=== PATIENT | female | born 1970 | race Caucasian/White ===

== ENCOUNTER → 2017-08-14 | Outpatient (CLI) | payer OTHER ==
--- NOTE | 2017-08-14 14:20 | RADIOLOGY REPORT (SQ) ---
EXAM DESCRIPTION: CT ABD/PELVIS WITH IV ORAL COMPLETED DATE/TIME: 08/14/2017 1:15 pm REASON FOR STUDY: PELVIC AND PERINEAL PAIN (R10.2), RLQ PAIN (R10.31) R10.2 PELVIC AND PERINEAL YENNI N R10.31 RIGHT LOWER QUADRANT PAIN COMPARISON: Abdominal ultrasound 07/15/2011 CT abdomen pelvis 07/15/2011 TECHNIQUE: CT scan of the abdomen and pelvis performed using helical scanning technique with dynamic intravenous contrast injection. Patient drank oral contrast. Images reviewed with lung, soft tissue, and bone windows. Reconstructed coronal and sagittal MPR imag es reviewed. Delayed images for evaluation of the urinary system also acquired. All images stored on PACS. All CT scanners at this facility use dose modulation, iterative reconstruction, and/or weight based d osing when appropriate to reduce radiation dose to as low as reasonably achievable (ALARA). [facility]: Dose Right [facility]: CareDose [facility]: Dose Right [facility]: Teradose 4D [facility]: Ubiq Mobile CONTRAST TYPE AND DOSE: contrast/concentration: Isovue 370.00 mg/ml; Total Contrast Delivered: 100.0 ml; Total Saline Delivered: 72.0 ml RENAL FUNCTION: Creatinine 0.7 RADIATION DOSE: Up-to-date CT equipment and radiation dose reduction techniques were employed. CTDIv ol: 23.5 - 24.4 mGy. DLP: 2445 mGy-cm.. LIMITATIONS: None. FINDINGS: LOWER CHEST: No significant findings. No nodules or infiltrates. LIVER: Normal size. No masses. No dilated ducts. A 4.6 x 4.9 cm cyst is present in the left lobe li arti subdiaphragmatic surface (was 2.6 cm in diameter in 2010). A 1.1 cm simple cyst is present in th e anterior left lobe liver (was 0.6 cm on 07/15/2011). SPLEEN: Normal size. No focal lesions. PANCREAS: No masses. No significant calcifications. No adjacent inflammation or peripancreatic fluid collections. Pancreatic duct not dilated. GALLBLADDER: Surgically absent. ADRENAL GLANDS: No significant masses or asymmetry. RIGHT KIDNEY AND URETER: No solid masses. No significant calcifications. No hydronephrosis or hyd roureter. LEFT KIDNEY AND URETER: No solid masses. No significant calcifications. No hydronephrosis or hydr oureter. AORTA AND VESSELS: No aneurysm. No dissection. Renal arteries, SMA, celiac without stenosis. RETROPERITONEUM: No retroperitoneal adenopathy, hemorrhage or masses. BOWEL AND PERITONEAL CAVITY: No masses or inflammatory changes. No free fluid or peritoneal masses. APPENDIX: Normal. PELVIS: No mass. No free fluid. Normal bladder. Post hysterectomy. Normal size ovaries on axial im age 74. ABDOMINAL WALL: No masses. No hernias. BONES: No significant or acute findings. OTHER: A 2.4 x 2.1 right-sided vulvar cyst is present on axial image 91 IMPRESSION: Benign hepatic cysts. Post hysterectomy and cholecystectomy Right-sided 2.4 x 2.1 cm vulvar cyst TECHNICAL DOCUMENTATION: JOB ID: [id number] Quality ID # [id number]: Final reports with documentation of one or more dose reduction techniques (e.g., Au tomated exposure control, adjustment of the mA and/or kV according to patient size, use of iterative reconstruction technique) 2010 [employer]- All Rights Reserved
== END ==
LOC: RAD 12:26
PROVIDERS: ATTEND Student in an Organized Health Care Education/Training Program
DX: R10.2 Pelvic and perineal pain (principal); R10.31 Right lower quadrant pain
CPT/HCPCS: 74177; 82565

== ENCOUNTER 2017-11-24 05:24 | Observation (INO) | payer OTHER ==
[2017-11-24] MEDS ORDERED: CEFAZOLIN 2 GM/D5W RTU 2 GM/50 ML RTUPB IV ONE (05:36)
[2017-11-24] MEDS ORDERED: CEFAZOLIN 2 GM/D5W RTU 2 GM/50 ML RTUPB IV PRN (05:54)
[2017-11-24 06:13] LABS: APPEARANCE,URINE CLEAR; BILIRUBIN,URINE NEGATIVE (NEGATIVE); COLOR,URINE YELLOW; GLUCOSE, URINE NEGATIVE (NEGATIVE); KETONES,URINE NEGATIVE (NEGATIVE); LEUKOCYTE ESTERASE,URINE SMALL (NEGATIVE); NITRITE,URINE NEGATIVE (NEGATIVE); PROTEIN,URINE NEGATIVE (NEGATIVE); URINE SPECIFIC GRAVITY 1.027
[2017-11-24 06:38] LABS: HEMOGLOBIN 14.7 g/dL (12.0-15.5); MEAN CORPUSCULAR HEMOGLOBIN 31.4 pg (27.0-33.4); MEAN CORPUSCULAR HGB CONC 33.4 g/dL (32.0-36.0); MEAN CORPUSCULAR VOLUME 94 fl (80-97); PLATELET COUNT 251 10^3/uL (150-450); RED BLOOD COUNT 4.68 10^6/uL (3.72-5.28); RED CELL DISTRIBUTION WIDTH 13.7 % (11.5-14.0)
[2017-11-24] MEDS ORDERED: ACETAMINOPHEN 100 ML IV ONE (06:58)
[2017-11-24] MEDS ORDERED: EPHEDRINE SULFATE INJ 50 MG/1 ML AMPULE ONE (06:59)
[2017-11-24] MEDS ORDERED: MIDAZOLAM 2 MG/2 ML INJ ONE (06:59)
[2017-11-24] MEDS ORDERED: FENTANYL CITRATE INJ/PF 100 MCG/2 ML AMPUL ONE ×2 (06:59→10:26)
[2017-11-24] MEDS ORDERED: HYDROMORPHONE HCL INJ/PF 2 MG/ML AMPULE ONE (07:00)
[2017-11-24] MEDS ORDERED: PROPOFOL INJ 200 MG/20 ML VIAL IV ONE (07:00)
[2017-11-24] MEDS ORDERED: BUPIVACAINE HCL 0.25 % INJ/PF (2.5 MG/1 ML) 30 ML VIAL ONE (07:28)
[2017-11-24] MEDS ORDERED: BUPIVACAINE HCL 0.25% /EPINEPHRINE INJ/PF 30 ML SDV ONE (07:28)
[2017-11-24] MEDS ORDERED: ESTROGENS,CONJUGATED 0.625 MG/1 GM 30 GM TUBE PV PRN (08:17)
[2017-11-24] MEDS ORDERED: OXYCODONE-ACETAMINOPHEN 5-325 MG TABLET PO PRN ×3 (08:42→10:42)
[2017-11-24] MEDS ORDERED: ONDANSETRON HCL INJ/PF 4 MG/2 ML SDV IV PRN ×2 (08:42→10:44)
[2017-11-24] MEDS ORDERED: MEPERIDINE HCL/PF INJ 25 MG/1 ML DISP.SYRIN IV PRN (08:42)
[2017-11-24] MEDS ORDERED: MORPHINE SULFATE 10 MG/ML INJ IV PRN (08:42)
[2017-11-24] MEDS ORDERED: FENTANYL CITRATE INJ/PF 100 MCG/2 ML AMPUL IV PRN ×3 (08:42)
[2017-11-24] MEDS ORDERED: PROMETHAZINE HCL INJ 25 MG/1 ML VIAL IV PRN ×2 (08:42)
[2017-11-24] MEDS ORDERED: DIPHENHYDRAMINE HCL 50 MG/ML VIAL IV PRN (08:42)
[2017-11-24] MEDS ORDERED: IBUPROFEN 800 MG TABLET PO PRN (10:42)
[2017-11-24] MEDS: HYDROMORPHONE HCL INJ/PF 2 MG/ML AMPULE IV PRN ×2 (11:58→17:50)
[2017-11-24] MEDS ORDERED: (PENDING PHARMACY ID) (Sertraline Hcl [Zoloft] 25 MG) PO PRN ×2 (12:13→12:40)
[2017-11-24] MEDS ORDERED: ROCURONIUM BROMIDE INJ 50 MG/5 ML VIAL IV ONE (13:28)
[2017-11-24] MEDS ORDERED: LIDOCAINE 2% INJ-PF (20 MG/ML) 2 ML AMPUL ONE (13:28)
[2017-11-24] MEDS ORDERED: SUCCINYLCHOLINE CHLORIDE INJ 200 MG/10 ML VIAL ONE (13:28)
[2017-11-24] MEDS ORDERED: NEOSTIGMINE METHYLSULFATE 10 MG/10 ML VIAL ONE (13:28)
[2017-11-24] MEDS ORDERED: METOCLOPRAMIDE HCL INJ/PF 10 MG/2 ML SDV ONE (13:28)
[2017-11-24] MEDS ORDERED: GLYCOPYRROLATE INJ 0.4 MG/2 ML VIAL ONE (13:28)
[2017-11-24] MEDS ORDERED: DEXAMETHASONE SOD PHOSPHATE INJ 4 MG/1 ML VIAL ONE (13:28)
[2017-11-24] MEDS ORDERED: KETOROLAC TROMETHAMINE 60 MG/2 ML SDV ONE (13:28)
[2017-11-24] MEDS ORDERED: ONDANSETRON HCL INJ/PF 4 MG/2 ML SDV ONE (13:28)
[2017-11-24] MEDS: METFORMIN HCL 500 MG TABLET PO SCH (15:39)
[2017-11-24] MEDS ORDERED: INFLUENZA ADLT QUAD (36MOS+) 2017-18 VAC 0.5 ML SYR IM PRN (19:40)
[2017-11-25] MEDS: OXYCODONE-ACETAMINOPHEN 5-325 MG TABLET PO PRN ×3 (04:02→15:50)
[2017-11-25] MEDS: METFORMIN HCL 500 MG TABLET PO SCH ×2 (08:34→16:09)
[2017-11-25] MEDS ORDERED: BUDESONIDE/FORMOTEROL 160-4.5 MCG 60 PUFF/6 GM MDI IH SCH (10:00)
--- NOTE | 2017-11-25 11:08 | PDOC PROGRESS REPORT ---
Subjective Progress Note for:: 11/25/17 Subjective:: +flatus, no BM, doing well, good pain control. Reason For Visit: R10.9 UNSPECIFIED ABDOMINAL PAIN Physical Exam - Physical Exam Vital Signs: Temp Pulse Resp BP Pulse Ox 98.0 F 70 15 109/63 94 11/25/17 08:08 11/25/17 08:08 11/25/17 08:08 11/25/17 08:08 11/25/17 08:08 Intake & Output 11/24/17 11/25/17 11/26/17 06:59 06:59 06:59 Intake Total 0 5200 Output Total 2885 Balance 0 2315 Weight 102.06 kg General appearance: PRESENT: no acute distress, well-developed, well-nourished Head exam: PRESENT: atraumatic, normocephalic Cardiovascular exam: PRESENT: RRR. ABSENT: diastolic murmur, rubs, systolic murmur Pulses: PRESENT: normal dorsalis pedis pul, +2 pedal pulses bilateral Vascular exam: PRESENT: normal capillary refill GI/Abdominal exam: PRESENT: normal bowel sounds, soft. ABSENT: distended, guarding, mass, organolmegaly, rebound, tenderness Rectal exam: PRESENT: deferred Extremities exam: PRESENT: full ROM. ABSENT: calf tenderness, clubbing, pedal edema Neurological exam: PRESENT: alert, awake, oriented to person, oriented to place , oriented to time, oriented to situation, CN II-XII grossly intact. ABSENT: motor sensory deficit Psychiatric exam: PRESENT: appropriate affect, normal mood. ABSENT: homicidal ideation, suicidal ideation Skin exam: PRESENT: dry, intact, warm. ABSENT: cyanosis, rash - Gynecological Exam Vagina: other - no hematoma, vaginal packing removed. Castro to gravity removed. DTV approx 1345 Result Laboratory Results: 11/24/17 06:11 Status: Imported from PACS Assessment & Plan - Diagnosis (1) Bartholin gland cyst Is this a current diagnosis for this admission?: Yes Plan: removed on right. healing well. No pelvic hematoma noted. Vaginal packing removed. If patient is doing well with continued adequate pain control then may be able to discharge this pm after DTV met. - Time Time Spent with patient: 15-24 minutes Medications reviewed and adjusted accordingly: Yes Anticipated discharge: Home Within: within 24 hours - Inpatient Certification Based on my medical assessment, after consideration of the patient's comorbidities, presenting symptoms, or acuity I expect that the services needed warrant INPATIENT care.: Yes I certify that my determination is in accordance with my understanding of Medicare's requirements for reasonable and necessary INPATIENT services [42 CFR 412.3e].: Yes Medical Necessity: Need for Pain Control, Risk of Complication if Not Cared For in Hospital Post Hospital Care: D/C Enrichment Assistant Documentation - Plan Summary Plan Summary: Discharge home if DTV met and pain well controlled this pm.
[2017-11-25 18:00] VITALS: BP 129/73
--- NOTE | 2017-11-25 18:54 | PDOC DISCHARGE SUMMARY ---
General - Admit/Disc Date/PCP Admission Date/Primary Care Provider: LEE TAMAYO MD Discharge Date: 11/25/17 - Discharge Diagnosis (1) Bartholin gland cyst Is this a current diagnosis for this admission?: Yes Summary: Persistent right Bartholins Gland cyst - s/p excision. Doing well. Packing removed this am and pt has met DTV. Pt voiding without difficulty. no c/o at this time and desires to go home. (2) Pelvic pain Is this a current diagnosis for this admission?: Yes Summary: S/p TWAN with Dr. Barney - Additional Information Discharge Diet: As Tolerated Discharge Activity: Activity As Tolerated Prescriptions: Oxycodone HCl/Acetaminophen [Percocet 5-325 mg Tablet] 2 tab PO Q4HP PRN 7 Days #30 tablet PRN Reason: For Pain Scale 3-4 Docusate Sodium [Colace 100 mg Capsule] 100 mg PO BID 30 Days #60 capsule Simethicone 80 mg PO QID #90 tab.chew Home Medications: Budesonide/Formoterol Fumarate [Symbicort 160-4.5 Mcg Inhaler] 10.2 gm IH DAILY 11/23/17 Metformin HCl [Glucophage 500 mg Tablet] 500 mg PO BIDACBS 11/23/17 Sertraline HCl [Zoloft 50 mg Tablet] 25 mg PO DAILY 11/24/17 Docusate Sodium [Colace 100 mg Capsule] 100 mg PO BID 30 Days #60 capsule Oxycodone HCl/Acetaminophen [Percocet 5-325 mg Tablet] 2 tab PO Q4HP PRN 7 Days #30 tablet 11/25/17 Simethicone 80 mg PO QID #90 tab.chew 11/25/17 History of Present Illness Patient complains of: Persistent Right Bartholins Gland cyst and desire for definitive management. Pt also with persistent right sided pelvic pain after previous hysterectomy History of Present Illness: ORALIA VILLAR is a 47 year old female who is s/p hysterectomy in the past. She was seen in the office for persistent right sided pelvic pain since prior hysterectomy and persistent Right sided Bartholins gland cyst despite multiple drainage attempts over the last several years. She desires definitive management of right batholins gland cyst with excision and evaluation of right sided pelvic pain with L/S. SHe was admitted on 11/24/2017 for L/S TWAN with RIght Bartholins Gland cyst. Hospital Course Hospital Course: SHe was admitted on 11/24/2017 for L/S TWAN with RIght Bartholins Gland cyst. She underwent uncomplicated procedure on 11/24/2017 and vaginal packing placed with wilcox to gravity overnight. This morning on POD#1 the vaginal packing was removed and the wilcox to gravity was removed. She met her DTV and is passing gas, toleration po intake and has good pain control with pain meds. Physical Exam - Physical Exam Vital Signs: Temp Pulse Resp BP Pulse Ox 97.5 F 79 18 129/73 H 94 11/25/17 17:58 11/25/17 17:58 11/25/17 17:58 11/25/17 17:58 11/25/17 17:58 Intake & Output 11/24/17 11/25/17 11/26/17 06:59 06:59 06:59 Intake Total 0 5200 830 Output Total 2885 1300 Balance 0 2315 -470 Weight 102.06 kg General appearance: PRESENT: no acute distress, well-developed, well-nourished Head exam: PRESENT: atraumatic Respiratory exam: PRESENT: clear to auscultation marvin, symmetrical, unlabored Cardiovascular exam: PRESENT: RRR. ABSENT: diastolic murmur, rubs, systolic murmur GI/Abdominal exam: PRESENT: distended - - normal bowel sounds and + flatus, normal bowel sounds, soft, tenderness - approp ttp. ABSENT: guarding, mass, organolmegaly, rebound Rectal exam: PRESENT: deferred Extremities exam: PRESENT: full ROM. ABSENT: calf tenderness, clubbing, pedal edema Neurological exam: PRESENT: alert, awake, oriented to person, oriented to place , oriented to time, oriented to situation, CN II-XII grossly intact. ABSENT: motor sensory deficit Psychiatric exam: PRESENT: appropriate affect, normal mood. ABSENT: homicidal ideation, suicidal ideation Skin exam: PRESENT: dry, intact, warm. ABSENT: cyanosis, rash - Gynecological Exam Vagina: other - no hematoma, vaginal packing removed. Wilcox to gravity removed. DTV approx 1345 Result Laboratory Results: 11/24/17 06:11 Status: Imported from PACS Plan Discharge Plan: Discharge to home. F/u in office in 1 wks Time Spent: Less than 30 Minutes
--- NOTE | 2017-12-22 12:33 | Operative Report ---
Operative Report DATE OF SURGERY: 11/24/17 PREOPERATIVE DIAGNOSIS: Right lower quadrant pain. Right bartholin gland cyst POSTOPERATIVE DIAGNOSIS: GANESH, Pelvic Adhesive disease OPERATION: Operative Laparoscopy with TWAN, Right Barthin's Gland removal SURGEON: LEE TAMAYO 1ST IRRIGATION SYSTEM INSTALLER: JIMMY BARNEY - consult ANESTHESIA: GA TISSUE REMOVED OR ALTERED: Bartholins Gland cyst COMPLICATIONS: None ESTIMATED BLOOD LOSS: 60ml INTRAOPERATIVE FINDINGS: Sheets of pelvic adhesions appeared to made up of omentum cascading from right anterior abdominal wall extending into pelvis. Due to concern for bowel component, general surgery consulted for assistance. Adhesions of bowel and omentum to vaginal cuff. Approximately 2cm x 3cm bartholins gland cyst on right with purulent drainage. Gallbladder noted in proper location (prior CT scan noted it was absent) PROCEDURE: Anesthesia: General Endotracheal tube Anesthesiologist: Christiano Brunner CRNA Estimated blood loss: [60ml] IV fluids: [2000ml] Urine output: [300ml] Specimens: [Right bartholins gland cyst] Indications: [47yo with history of hysterectomy in 2009 presents for persistent right pelvic pain without significant findings on CT scan or US and persistent bartholin gland cyst despite word catheters and outpatient treatment. She desires to proceed with operative Laparoscopy to determine cause of pelvic pain and to have bartholin glan cyst removed. The risks/ benefits/alternatives were reviewed and she desires to proceed with planned procedure.] Procedure: The patient was taken to the operating room where general anesthesia was obtained without difficulty. The patient was then examined under anesthesia with findings as noted above with a small anteverted uterus and possible left adnexal mass. She was then placed in dorsal supine lithotomy position and prepped and draped in the normal sterile fashion. Sponge stick was placed into the vagina for manipulation if needed due to history of hysterectomy. Attention was then turned to the patient's abdomen where a 5 mm infraumbilical skin incision was then made. The Optiview trocar with 0 laparoscope was then advanced without difficulty under direct visualization with the Optiview trocar. This was performed while tenting the abdominal wall and these will fashion. Intraperitoneal placement was confirmed by the direct visualization. Pneumoperitoneum was then obtained with approximately 4 L carbon dioxide gas. Survey of the patient's abdomen and pelvis revealed findings as noted above. A second skin incision was then made approximately 3 cm superior 4 cm medial to the anterior superior iliac spine on the left and then a third skin incision was made approximately 3 cm superior to the lower incision. These incisions were made under direct visualization with the laparoscope. The second and third trochars were then advanced under direct visualization of the laparoscope at the sites. Unable to visualize anything in pelvis due to sheets of probable omental adhesions. Dr. Barney consulted and removed adhesions safely. Please see his note. Also noted was patients gallbladder in normal location although possibly slightly enlarged (her outpatient CT scan had noted it was absent). After removal of adhesions survey of the pelvis noted dense scarring over vaginal cuff not amenable to adhesiolysis. All operative sites were visualized and noted to be hemostatic. The 2 additional trochars on the patient's left greater than removed under direct visualization. The 10 mm trocar was then removed after abdominal insufflation was removed. The fascia at the 10 mm trocar site was closed with 0 Vicryl on a UR 6 needle. The skin at all trocar sites were closed with 3-0 Monocryl in a subcuticular fashion with overlying Dermabond. Attention was then turned to the vagina, where the sponge stick was removed and the right bartholins gland cyst was incisioned and slowly dissected from normal vaginal tissue using blunt and sharp dissection. Once entireity of cyst wall removed the site was closed in a layerd fashion with good hemostasis noted. Premarin soaked vaginal packing placed to be removed on postoperative day #1. Perioperative antibiotics were given due to bartholins gland cyst. Sponge lap needle and instrument counts were correct 3. The patient tolerated the procedure well and was taken to the recovery area awake and in stable condition.
== END 2017-11-25 18:55 | disposition home or self-care (01) ==
LOC: OROUT 05:24 → 2N 05:30 → EDSTATUS 07:30 → 2N 11:17 → OROUT 11:17 → 2N 11-25 18:55 → OROUT 11-25 18:55
PROVIDERS: ADMIT Student in an Organized Health Care Education/Training Program; ATTEND Student in an Organized Health Care Education/Training Program
PROC: 0DNW4ZZ Release Peritoneum, Percutaneous Endoscopic Approach (ICD-10-PCS; 2017-11-24)
PROC: 3E0234Z Introduction of Serum, Toxoid and Vaccine into Muscle, Percutaneous Approach (ICD-10-PCS; principal; 2017-11-24 07:30)
PROC: 0UBLXZZ Excision of Vestibular Gland, External Approach (ICD-10-PCS; 2017-11-24 07:30)
DX: N75.0 Cyst of Bartholin's gland (principal); N73.6 Female pelvic peritoneal adhesions (postinfective); R10.2 Pelvic and perineal pain; R14.3 Flatulence; K82.8 Other specified diseases of gallbladder; Z79.84 Long term (current) use of oral hypoglycemic drugs; Z79.899 Other long term (current) drug therapy; Z90.710 Acquired absence of both cervix and uterus; Z23 Encounter for immunization; Z98.890 Other specified postprocedural states; Z80.52 Family history of malignant neoplasm of bladder; Z79.51 Long term (current) use of inhaled steroids; Z87.891 Personal history of nicotine dependence
CPT/HCPCS: 36415; 82962; 85027; 81001; 88304 ×2; 90686; 56740; 49329; G0378 ×2; G0379; J2250; J3490 ×5; J1100; J1885; J3010; J2765; J1170; J0330; J2405; J2704; J0690; J0131; 840

== ENCOUNTER → 2020-07-10 | Outpatient (CLI) | payer OTHER ==
[2020-07-10 13:51] LABS: ANION GAP 9 (5-19); BLOOD UREA NITROGEN 12 mg/dL (7-20); CALCIUM 10.3 mg/dL (8.4-10.2); CARBON DIOXIDE 30 mmol/L (22-30); CHLORIDE 103 mmol/L (98-107); GLUCOSE 104 mg/dL (75-110); POTASSIUM 5.1 mmol/L (3.6-5.0)
== END ==
LOC: OD 11:47
PROVIDERS: ATTEND Anesthesiology
DX: Z01.812 Encounter for preprocedural laboratory examination (principal)
CPT/HCPCS: 36415; 80048